=== PATIENT | male | born 1950 | race Caucasian/White ===

== ENCOUNTER → 2018-08-12 | Outpatient (CLI) | payer MEDICARE ==
[~2018-08-12] MED LIST: OMAL150V SC; SIMV20TA3 PO
[2018-08-12 11:56] LABS: BASOPHILS # (AUTO) 0.04 x10^3/uL (0-0.1); BASOPHILS % (AUTO) 1 % (0-1); EOSINOPHILS % (AUTO) 2 % (1-7); LYMPHOCYTES # (AUTO) 1.35 x10^3/uL (1-3.4); LYMPHOCYTES % (AUTO) 24 % (22-44); MD NO; MEAN CORPUSCULAR HGB CONC 34.6 g/dL (33.2-36.2); MEAN CORPUSCULAR VOLUME 92.4 fL (81-97); MONOCYTES # (AUTO) 0.49 x10^3/uL (0.2-0.8); MONOCYTES % (AUTO) 9 % (2-9); NEUTROPHILS # (AUTO) 3.55 x10^3/uL (1.8-6.8); NEUTROPHILS % (AUTO) 64 % (42-75); PLATELET COUNT 194 x10^3/uL (130-400); RED BLOOD COUNT 5.27 x10^6/uL (4.38-5.82); RED CELL DISTRIBUTION WIDTH 13.8 % (9.4-14.8)
[2018-08-12 11:58] LABS: CHLORIDE 108 mmol/L (98-107)
[2018-08-12 12:03] LABS: ALANINE AMINOTRANSFERASE 40 U/L (12-78); ANION GAP 5 mmol/L (5-15); CALCIUM 9.3 mg/dL (8.5-10.1)
[2018-08-12 12:06] LABS: ALKALINE PHOSPHATASE 60 U/L (45-117); BILIRUBIN,TOTAL 0.7 mg/dL (0.2-1.0); CREATININE 1.26 mg/dL (0.7-1.3); TOTAL PROTEIN 7.5 g/dL (6.4-8.2)
[2018-08-12 12:10] LABS: MICROSCOPIC NOT IND
== END | disposition home or self-care (01) ==
LOC: STAR 10:36
PROVIDERS: ATTEND Urology
DX: Z01.818 Encounter for other preprocedural examination (principal); C61 Malignant neoplasm of prostate
CPT/HCPCS: 36415; 80053; 81003; 85025; 87086; 93005

== ENCOUNTER 2018-08-19 05:37 | Inpatient (IN) | payer MEDICARE ==
[2018-08-12 11:18] VITALS: BP 144/91
[~2018-08-19] VITALS: Ht 172.7 cm; Wt 88.0 kg
[2018-08-19] MEDS ORDERED: LIDOCAINE-MPF 1%, 2ML INFIL ONE (06:30)
[2018-08-19] MEDS ORDERED: LACTATED RINGERS 1,000 ML IV SCH (06:30)
[2018-08-19] MEDS ORDERED: BUPIVACAINE/PF-EPI 0.25% 1:200K ONE (06:50)
[2018-08-19] MEDS ORDERED: INDIGO CARMINE 0.8%, 5ML ONE (06:50)
[2018-08-19] MEDS ORDERED: THROMBIN 5,000 UNIT VIAL TP ONE (06:50)
[2018-08-19] MEDS ORDERED: MIDAZOLAM 1 MG/ML, 2ML ONE (07:24)
[2018-08-19] MEDS ORDERED: FENTANYL PF 250 MCG/5ML ONE (07:25)
[2018-08-19] MEDS ORDERED: LIDOCAINE JELLY 2%, 30GM ONE (07:27)
[2018-08-19] MEDS ORDERED: ACETAMINOPHEN 500 MG TABLET PO ONE (07:30)
[2018-08-19] MEDS ORDERED: GABAPENTIN 300 MG CAPSULE PO ONE (07:30)
[2018-08-19] MEDS ORDERED: ONDANSETRON ODT 8 MG PO ONE (07:30)
[2018-08-19] MEDS ORDERED: PHENYLEPHRINE 10 MG/ML ONE (07:32)
[2018-08-19] MEDS ORDERED: EPHEDRINE 50 MG/ML, 1ML ONE (07:32)
[2018-08-19] MEDS ORDERED: BUPIVACAINE/PF 0.5% ONE ×2 (08:48→08:49)
[2018-08-19] MEDS ORDERED: PROPOFOL 10 MG/ML, 20ML ONE (08:48)
[2018-08-19] MEDS ORDERED: ROCURONIUM 10MG/ML,5ML ONE ×4 (08:48→12:51)
[2018-08-19] MEDS ORDERED: ONDANSETRON 2MG/ML, 2ML ONE (08:48)
[2018-08-19] MEDS ORDERED: DEXAMETHASONE 4 MG/ML, 1ML ONE ×2 (08:48)
[2018-08-19] MEDS ORDERED: CEFAZOLIN 1,000 MG ONE (08:48)
[2018-08-19] MEDS ORDERED: GLYCOPYRROLATE 0.2MG/1ML, 5ML ONE (08:48)
[2018-08-19] MEDS ORDERED: NEOSTIGMINE 1 MG/ML, 10ML ONE (08:48)
[2018-08-19] MEDS ORDERED: SCOPOLAMINE PATCH, 1.5MG PATCH.TD72 TD PRN (09:00)
[2018-08-19] MEDS ORDERED: FENTANYL PF 100 MCG/2ML IV PRN (09:00)
[2018-08-19] MEDS ORDERED: ALBUTEROL/IPRATROPIUM 2.5MG/0.5MG, 3 ML NPPB PRN (09:00)
[2018-08-19] MEDS ORDERED: MEPERIDINE/PF 25MG/0.5ML IVPush PRN (09:00)
[2018-08-19] MEDS ORDERED: MIDAZOLAM 1 MG/ML, 2ML IV PRN (09:00)
[2018-08-19] MEDS ORDERED: OXYcodone 5 MG/5 ML ORAL.SOL UDC PO PRN (09:00)
[2018-08-19] MEDS ORDERED: ONDANSETRON 2MG/ML, 2ML IV PRN ×2 (09:00→15:30)
[2018-08-19] MEDS ORDERED: LABETALOL 5MG/ML, 20ML IV PRN (09:00)
[2018-08-19] MEDS ORDERED: PROMETHAZINE 25 MG SUPP PR PRN (09:00)
[2018-08-19] MEDS ORDERED: hydrALAzine 20 MG/ML, 1ML IV PRN (09:00)
[2018-08-19] MEDS ORDERED: HYDROmorphone 1 MG/ML, 1ML IV PRN (09:00)
[2018-08-19] MEDS ORDERED: MEPERIDINE/PF 50 MG/ML ONE (13:16)
[2018-08-19] MEDS ORDERED: FENTANYL PF 100 MCG/2ML ONE (13:51)
[2018-08-19] MEDS ORDERED: OXYcodone 5 MG/5 ML ORAL.SOL UDC ONE (13:52)
[2018-08-19] MEDS ORDERED: TEMAZEPAM 15 MG CAPSULE PO PRN (15:30)
[2018-08-19] MEDS ORDERED: morphine SULFATE 10 MG/ML, 1ML IV PRN (15:30)
[2018-08-19] MEDS: D5%-0.45NACL+KCL 20MEQ 1,000 ML IV SCH (17:50)
[2018-08-19] MEDS: CEFAZOLIN PMX 1GM/50ML 50 ML IVPB SCH (17:50)
[2018-08-19 20:00] VITALS: BP 107/69
[2018-08-19 21:30] VITALS: BP 111/75
[2018-08-19] MEDS: SIMVASTATIN 20 MG TABLET PO SCH (21:30)
[2018-08-20 00:01] VITALS: BP 109/70
[2018-08-20] MEDS: HYDROcodone/APAP 5/325 TABLET PO PRN ×3 (02:08→22:00)
[2018-08-20] MEDS: CEFAZOLIN PMX 1GM/50ML 50 ML IVPB SCH (02:08)
[2018-08-20] MEDS: D5%-0.45NACL+KCL 20MEQ 1,000 ML IV SCH ×3 (03:26→22:00)
[2018-08-20 04:35] VITALS: BP 105/60
[2018-08-20 07:42] VITALS: BP 123/75
[2018-08-20 15:30] VITALS: BP 112/72
[2018-08-20 18:48] VITALS: BP 106/63
[2018-08-20] MEDS: SIMVASTATIN 20 MG TABLET PO SCH (22:00)
[2018-08-21 01:12] VITALS: BP 118/69
[2018-08-21] MEDS: HYDROcodone/APAP 5/325 TABLET PO PRN ×5 (02:16→22:02)
[2018-08-21 05:21] LABS: BASOPHILS # (AUTO) 0.02 x10^3/uL (0-0.1); BASOPHILS % (AUTO) 0 % (0-1); EOSINOPHILS # (AUTO) 0.07 x10^3/uL (0-0.4); EOSINOPHILS % (AUTO) 1 % (1-7); LYMPHOCYTES # (AUTO) 1.27 x10^3/uL (1-3.4); LYMPHOCYTES % (AUTO) 15 % (22-44); MD NO; MEAN CORPUSCULAR HEMOGLOBIN 31.5 pg (27.5-34.5); MEAN CORPUSCULAR VOLUME 92.6 fL (81-97); MEAN PLATELET VOLUME 8.7 fL (7.4-10.4); MONOCYTES # (AUTO) 0.71 x10^3/uL (0.2-0.8); MONOCYTES % (AUTO) 8 % (2-9); NEUTROPHILS # (AUTO) 6.51 x10^3/uL (1.8-6.8); NEUTROPHILS % (AUTO) 76 % (42-75); PLATELET COUNT 148 x10^3/uL (130-400); RED BLOOD COUNT 3.63 x10^6/uL (4.38-5.82); RED CELL DISTRIBUTION WIDTH 13.7 % (9.4-14.8)
[2018-08-21 05:33] LABS: CHLORIDE 111 mmol/L (98-107)
[2018-08-21 05:40] LABS: ALANINE AMINOTRANSFERASE 21 U/L (12-78); ALBUMIN 2.9 g/dL (3.4-5.0); ALKALINE PHOSPHATASE 42 U/L (45-117); ANION GAP 8 mmol/L (5-15); BILIRUBIN,TOTAL 0.3 mg/dL (0.2-1.0); CALCIUM 7.8 mg/dL (8.5-10.1); TOTAL PROTEIN 5.7 g/dL (6.4-8.2)
[2018-08-21] MEDS: D5%-0.45NACL+KCL 20MEQ 1,000 ML IV SCH ×3 (05:56→22:02)
[2018-08-21 07:56] VITALS: BP 126/74
[2018-08-21 13:42] VITALS: BP 121/73
[2018-08-21 18:54] VITALS: BP 127/68
[2018-08-21] MEDS: SIMVASTATIN 20 MG TABLET PO SCH (22:02)
[2018-08-22 00:44] VITALS: BP 118/66
[2018-08-22] MEDS: D5%-0.45NACL+KCL 20MEQ 1,000 ML IV SCH ×3 (04:47→21:26)
[2018-08-22 05:06] LABS: ANION GAP 8 mmol/L (5-15); CHLORIDE 109 mmol/L (98-107); CREATININE 1.02 mg/dL (0.7-1.3)
[2018-08-22 07:52] VITALS: BP 135/89
[2018-08-22] MEDS: HYDROcodone/APAP 5/325 TABLET PO PRN ×2 (11:08→17:33)
[2018-08-22 14:43] VITALS: BP 131/85
[2018-08-22 20:26] VITALS: BP 113/72
[2018-08-22] MEDS: SIMVASTATIN 20 MG TABLET PO SCH (21:26)
[2018-08-23] MEDS: D5%-0.45NACL+KCL 20MEQ 1,000 ML IV SCH (00:53)
[2018-08-23 03:08] VITALS: BP 113/72
[2018-08-23 07:33] VITALS: BP 111/74
== END 2018-08-23 12:30 | disposition home or self-care (01) | DRG 707 ==
LOC: ORIP 05:37 → EDSTATUS 07:30 → 4NOR 14:54
PROVIDERS: ADMIT Urology; ATTEND Urology
PROC: 07BC4ZX Excision of Pelvis Lymphatic, Percutaneous Endoscopic Approach, Diagnostic (ICD-10-PCS; 2018-08-19)
PROC: 8E0W4CZ Robotic Assisted Procedure of Trunk Region, Percutaneous Endoscopic Approach (ICD-10-PCS; 2018-08-19)
PROC: 0VT04ZZ Resection of Prostate, Percutaneous Endoscopic Approach (ICD-10-PCS; principal; 2018-08-19 07:30)
DX: C61 Malignant neoplasm of prostate (principal); E44.0 Moderate protein-calorie malnutrition; J45.909 Unspecified asthma, uncomplicated; E78.49 Other hyperlipidemia; R56.9 Unspecified convulsions; Z88.2 Allergy status to sulfonamides; Z88.1 Allergy status to other antibiotic agents; Z80.0 Family history of malignant neoplasm of digestive organs; Z90.49 Acquired absence of other specified parts of digestive tract
CPT/HCPCS: 36415; 80048; 80053; 82570; 85014; 85018; 85025; 86850; 86900; 88305; 88309; C1729; G0378; J0690; J1100; J2175; J2250; J2405; J2704; J2710; J3010; J3490; Q0162; C1760; J2370; J3480; J7120

== ENCOUNTER → 2018-08-26 | Outpatient (CLI) | payer MEDICARE | END | disposition home or self-care (01) | LOC: RAD 07:21 | PROVIDERS: ATTEND Urology | DX: C61 Malignant neoplasm of prostate (principal) | CPT/HCPCS: 51600; 74430 ==

== ENCOUNTER → 2018-10-01 | Outpatient (CLI) | payer MEDICARE | END | disposition home or self-care (01) | LOC: PETCFH 11:16 | PROVIDERS: ATTEND Internal Medicine | DX: C61 Malignant neoplasm of prostate (principal) | CPT/HCPCS: 78306; A9503 ==